=== PATIENT | male | born 1995 | race Hispanic/Latino ===

== ENCOUNTER 2024-11-08 06:41 | Emergency (ER) | payer OTHER ==
--- OUTSIDE RECORDS SUMMARY | 2024-11-08 06:44 | XMS REPORT | Continuity of Care Document ---
Author Name Unknown Address [address] [place] [address] [facility] [place] [facility] [address] [place] [address] Care Team Providers [employer] Name Role Phone Mahnaz HILL, [facility] Primary Care Physician [phone] MATT CRAVEN Attending Clinician Unavailable ELMO RODRIGUEZ Attending Clinician Unavailable Isadora Myrick MD Attending Clinician +[phone] MD ALIE Attending Clinician Unavailab JESSICA Be Attending Clinician Unavail able LAB47 Attending Clinician Unavailable Jessica Block PA-C Attending Clinician + [phone] Milton Munson MD Attending Clinician + MILTON MUNSON Attending Clinician Unav ailable Wm Reza DO Attending Clinician [phone] MILAGRO CURREI Attending Clini zay Unavailable Payers Payer Name Policy Type Policy Number Effective Date Expirati on Date Source [facility] 9 [id number] 2013 00:00:00 Problems Condition Name Condition Details Condition Category Status Onset Date Resolution Date Last Treatment Date Treating Clinician Comments Source ADHD ADHD Disease Active 08-29 00:00: 00 Milagro Ramos Overweight (278.02) Overweight (278.02) Disease Active 02-08 00:00: 00 Overview: Formattin g of this note might be different from the original. ICD-10 Milagro Ramos No known active problems No known active problems Disease Milagro Ramos Social History Social Habit Start Date Stop Date Quantity Comments Source Alcohol intake 2021-08-29 00:00:00 2021-08-29 00:00:00 Current drinker of alcohol (finding) Milagro Ramos Exposure to SARS-CoV-2 (event) 2021-08-18 00:00:00 2021-08-28 12:08:00 Not sure Milagro Ramos Tobacco use and exposure 2021-05-05 00:00:00 2021-05-05 00:00:00 Smokeless tobacco non-user Milagro Ramos Tobacco Comment 2009-03-01 00:00:00 2009-03-01 00:00:00 Per mom no one in the home smokes Milagro Ramos Sex Ass[birth year] At 1995 00:00:00 1995 00[birth year]:00 Milagro Ramos Smoking Status Start Date Stop Date Source Never smoked tobacco Milagro Ramos Medications Ordered Medication Name Filled Medication Name Start Date Stop Date Current Medication? Ordering Clinician Indication Dosage Frequency Signature (SIG) Comments Components Source Econazole Nitrate 1 % apply externally Cream 2020-06 00:00: 00 Yes [id number] Apply to affected area daily Milagro Ramos No known medications 2020-06 14:07: 22 No No known medication neeta Ramos Benzonatate (Tessalon Perles) 100 MG oral Capsule 01-10 00:00: 00 03-31 00:00 :00 No 100mg [id number] 3D Take 1 capsule (100 mg total) by mouth 3 times daily as needed Milagro Ramos Vital Signs Vital Name Observation Time Observation Value Comments S ource Systolic blood pressure 2021-08-29 16:37:00 146 mm[Hg] Milagro Seybold Diastolic blood pressure 2021-08-29 16:37:00 76 mm[Hg] Milagro Seybo ld Heart rate 2021-08-29 16:37:00 82 /min Kelse y Seybold Body temperature 2021-08-29 16:37:00 36.11 Clarita Milagro Seybold Respiratory rate 2021-08-29 16:37:00 18 /min Milagro Seybold Body height 2021-08-29 16:37:00 172.7 cm Carrie ey Seybold Body weight 2021-08-29 16:37:00 92.987 kg Carrie ey Seybold BMI 2021-08-29 16:37:00 31.17 kg/m2 Carrie ey Seybold Oxygen saturation in Arterial blood by Pulse oximetry 2021-08-29 16:37:00 98 /min Milagro Seybo ld Systolic blood pressure 2021-05-05 20:28:00 122 mm[Hg] Milagro Seybold Diastolic blood pressure 2021-05-05 20:28:00 78 mm[Hg] Milagro Seybo ld Heart rate 2021-05-05 20:28:00 69 /min Kelse y Seybold Body temperature 2021-05-05 20:28:00 36.22 Clarita Milagro Seybold Respiratory rate 2021-05-05 20:28:00 16 /min Milagro Seybold Body height 2021-05-05 20:28:00 172.7 cm Carrie ey Seybold Body weight 2021-05-05 20:28:00 89.268 kg Carrie ey Seybold BMI 2021-05-05 20:28:00 29.92 kg/m2 Carrie ey Seybold Body height 2021-04-14 19:11:00 172.7 cm Carrie ey Seybold Body weight 2021-04-14 19:11:00 90.266 kg Carrie ey Seybold BMI 2021-04-14 19:11:00 30.26 kg/m2 Carrie ey Seybold Systolic blood pressure 2021-03-31 15:15:00 122 mm[Hg] Milagro Seybold Diastolic blood pressure 2021-03-31 15:15:00 76 mm[Hg] Milagro gonzales Heart rate 2021-03-31 15:15:00 82 /min Renita Ramos Body temperature 2021-03-31 15:15:00 36.78 Clarita Milagro Ramos Respiratory rate 2021-03-31 15:15:00 18 /min Milagro Ramos Body height 2021-03-31 15:15:00 172.7 cm Carrie Ramos Body weight 2021-03-31 15:15:00 90.266 kg Carrie Ramos BMI 2021-03-31 15:15:00 30.26 kg/m2 Carrie Ramos Oxygen saturation in Arterial blood by Pulse oximetry 2021-03-31 15:15:00 99 /min Milagro gonzales Encounters Start Date/Time End Date/Time Encounter Type Admission Type Attending [facility] [place] Care Department Encounter ID Source 2023-05-05 10:00:00 2023-05-05 10:00:00 Outpatient MATT CRAVEN [id number] [facility] 2023-05-04 11:00:00 2023-05-04 11:00:00 Outpatient ELMO RODRIGUEZ [id number] Milagro [facility] 2021-08-29 10:30:00 2021-08-29 10:45:00 Office Visit Isadora Myrick [id number] Milagro felix 2021-06-17 00:00:00 2021-06-17 00:00:00 Outpatient MD MILAGRO DURAN [id number] Milagro felix 2021-05-08 00:00:00 2021-05-08 00:00:00 Outpatient MILAGRO GUERRA [id number] Milagro felix 2021-05-06 00:00:00 2021-05-06 00:00:00 Outpatient JESSICA BLOCK [id number] Milagro [facility] 2021-05-05 15:15:00 2021-05-05 15:15:00 Outpatient LAB47 MILAGRO GUERRA [id number] Milagro barrera 2021-05-05 14:23:28 2021-05-05 14:53:28 Office Visit Jessica Block [id number] [facility] 2021-04-14 14:05:56 2021-04-14 14:15:56 Office Visit Milton Munson [facility] [id number] Milagro barrera 2021-04-14 14:00:00 2021-04-14 14:00:00 Outpatient MILAGRO GUERRA [id number] Milagro barrera 2021-04-14 00:00:00 2021-04-14 00:00:00 Outpatient MILTON MUNSON MILAGRO GUERRA [id number] Milagro [facility] 2021-03-31 10:09:23 2021-03-31 10:39:23 Office Visit Wm Reza [id number] Milagro barrera 2021-01-10 15:45:00 2021-01-10 15:45:00 Outpatient MILAGRO ALBRIGHT [id number] [facility]
--- NOTE | 2024-11-08 07:57 | RAD REPORT ---
Procedure: Chest Single View HISTORY: Chest pain COMPARISON: none FINDINGS: The lungs appear clear of acute infiltrate. No significant pleural effusion noted. The heart is normal size. IMPRESSION: No acute abnormality is displayed.
--- NOTE | 2024-11-08 08:26 | ER ---
Nurse's Notes [facility] Name: Victoriano Blanton Age: 29 yrs Sex: Male : 1995 Arrival Date: 11/08/2024 Time: 06:41 Bed 18 Private MD: Diagnosis: Chest pain Presentation: 11/08 07:00 Chief complaint: Patient states: SOB x2 days with left sided chest pain 4/10 that kc6 started yesterday and worsened over night. 07:00 Coronavirus screen: At this time, the client does not indicate any symptoms associated kc6 with coronavirus-19. Ebola Screen: No symptoms or risks identified at this time. Initial Sepsis Screen: Does the patient meet any 2 criteria? HR > 90 bpm. Does the patient have a suspected source of infection? No. Patient's initial sepsis screen is negative. Risk Assessment: Do you want to hurt yourself or someone else? Patient reports no desire to harm self or others. Onset of symptoms was November 08, 2024. 07:00 Method Of Arrival: Ambulatory kc6 07:00 Acuity: LIANNE 3 kc6 Historical: - Allergies: 07:00 No Known Allergies; kc6 - Home Meds: 07:00 None [Active]; kc6 - PMHx: 07:00 None; kc6 - PSHx: 07:00 None; kc6 - Immunization history:: Adult Immunizations up to date. - Infectious Disease History:: Denies. - Social history:: Smoking status: Patient denies any tobacco usage or history of. Screenin:13 [facility] ED Fall Risk Assessment (Adult) History of falling in the last 3 months, kc6 including since admission No falls in past 3 months (0 pts) Confusion or Disorientation No (0 pts) Intoxicated or Sedated No (0 pts) Impaired Gait No (0 pts) Mobility Assist Device Used No (0 pt) Altered Elimination No (0 pt) Score/Fall Risk Level 0 - 2 = Low Risk Oriented to surroundings. Abuse screen: Denies threats or abuse. Denies injuries from another. Nutritional screening: No deficits noted. Tuberculosis screening: No symptoms or risk factors identified. Assessment: 07:14 General: Appears in no apparent distress. comfortable, well groomed, well developed, kc6 Behavior is calm, cooperative, appropriate for age. Pain: Complains of pain in chest Pain radiates to left arm Pain began 1 day ago. Neuro: Level of Consciousness is awake, alert, obeys commands, Oriented to person, place, time, situation, Appropriate for age. Cardiovascular: Reports chest pain, shortness of breath, Heart tones S1 S2 present Capillary refill < 3 seconds Rhythm is regular. Respiratory: Airway is patent Trachea midline Respiratory effort is even, unlabored, Respiratory pattern is regular, symmetrical. GI: No signs and/or symptoms were reported involving the gastrointestinal system. : No signs and/or symptoms were reported regarding the genitourinary system. EENT: No signs and/or symptoms were reported regarding the EENT system. Derm: No signs and/or symptoms reported regarding the dermatologic system. Skin is intact, is healthy with good turgor, Skin is pink, warm \T\ dry. Musculoskeletal: No signs and/or symptoms reported regarding the musculoskeletal system. Circulation, motion, and sensation intact. Range of motion: intact in all extremities. Vital Signs: 06:59 BP 137 / 87; Pulse 94; Resp 16; Temp 98.5; Pulse Ox 98% on R/A; Weight 99.79 kg; Height rg5 5 ft. 8 in. ; Pain 4/10; 07:59 BP 94 / 75; Pulse 86; Resp 18 S; Pulse Ox 98% on R/A; kc6 06:59 Body Mass Index 33.45 (99.79 kg, 172.72 cm) rg5 06:59 Pain Scale: Adult rg5 ED Course: 06:46 Patient arrived in ED. jj6 07:00 Arm band placed on. EKG completed in triage. Results shown to MD. kc6 07:00 EKG done, by ED staff, reviewed by Rosaline Myrick MD. Patient maintains SpO2 saturation kc6 greater than 95% on room air. 07:08 Jillian Guerra, JENNIFER is Primary Nurse. kc6 07:10 Rosaline Myrick MD is Attending Physician. sp3 07:13 Triage completed. kc6 07:13 Patient has correct armband on for positive identification. Placed in gown. Bed in low kc6 position. Call light in reach. Side rails up X 1. strategic planner on. Pulse ox on. NIBP on. Door closed. Noise minimized. Lights dimmed. Warm blanket given. Pillow given. Verbal reassurance given. 07:41 XRAY Chest (1 view) In Process Unspecified. EDMS 08:42 No provider procedures requiring assistance completed. IV discontinued, intact, kc6 bleeding controlled, No redness/swelling at site. Pressure dressing applied. Administered Medications: No medications were administered Medication: 08:43 VIS not applicable for this client. kc6 Outcome: 08:26 Discharge ordered by . sp3 08:42 Discharged to home ambulatory, kc6 08:42 Condition: good 08:42 Discharge instructions given to patient, Instructed on discharge instructions, follow up and referral plans. Demonstrated understanding of instructions, follow-up care, 08:43 Patient left the ED. kc6 Signatures: Dispatcher [employer] EDMS Rosaline Myrick MD MD sp3 Jaylin Cervantes6 Jillian Guerra, RN RN kc6 Chad Mitchell RN RN rg5
--- NOTE | 2024-11-08 08:26 | EDPHYS ---
Physician Documentation [facility] Name: Victoriano Blanton Age: 29 yrs Sex: Male : 1995 Arrival Date: 11/08/2024 Time: 06:41 Bed 18 Private MD: ED Physician Rosaline Myrick HPI: 11/08 07:39 This 29 yrs old Male presents to ER via Ambulatory with complaints of sp3 Shortness Of Breath, Chest Pain. 07:39 29-year-old male with no past medical history presents with 48-hour history of sp3 left-sided chest pain underneath his pectoralis muscle. Patient said it started insidiously while at rest. He reports no exertional activity, injury, trauma, nausea or vomiting, abdominal pain, back pain, kidney stone history, dysuria, visualized hematuria, prolonged immobilization, travel history, prior DVT or PE, family history of hypercoagulability, or any other signs or symptoms on ROS at this time. Pain is described as sharp in nature and comes and goes.. Historical: - Allergies: 07:00 No Known Allergies; kc6 - Home Meds: 07:00 None [Active]; kc6 - PMHx: 07:00 None; kc6 - PSHx: 07:00 None; kc6 - Immunization history:: Adult Immunizations up to date. - Infectious Disease History:: Denies. - Social history:: Smoking status: Patient denies any tobacco usage or history of. ROS: 07:40 Constitutional: Negative for fever, chills, and weight loss, Eyes: Negative for injury, sp3 pain, redness, and discharge, ENT: Negative for injury, pain, and discharge, Neck: Negative for injury, pain, and swelling, Respiratory: Negative for shortness of breath, cough, wheezing, and pleuritic chest pain, Abdomen/GI: Negative for abdominal pain, nausea, vomiting, diarrhea, and constipation, Back: Negative for injury and pain, Skin: Negative for injury, rash, and discoloration, Neuro: Negative for headache, weakness, numbness, tingling, and seizure, Psych: Negative for depression, anxiety, suicide ideation, homicidal ideation, and hallucinations, Allergy/Immunology: Negative for hives, rash, and allergies, Endocrine: Negative for neck swelling, polydipsia, polyuria, polyphagia, and marked weight changes, Hematologic/Lymphatic: Negative for swollen nodes, abnormal bleeding, and unusual bruising, 07:40 All other systems are negative, Exam: 07:40 Constitutional: This is a well developed, well nourished patient who is awake, alert, sp3 and in no acute distress. Head/Face: Normocephalic, atraumatic. Eyes: Pupils equal round and reactive to light, extra-ocular motions intact. Lids and lashes normal. Conjunctiva and sclera are non-icteric and not injected. Cornea within normal limits. Periorbital areas with no swelling, redness, or edema. ENT: Nares patent. No nasal discharge, no septal abnormalities noted. External auditory canals are clear. Oropharynx with no redness, swelling, or masses, exudates, or evidence of obstruction, uvula midline. Mucous membranes moist. Neck: Trachea midline, no thyromegaly or masses palpated, and no cervical lymphadenopathy. Supple, full range of motion without nuchal rigidity, or vertebral point tenderness. No Meningismus. Chest/axilla: Normal chest wall appearance and motion. Nontender with no deformity. No lesions are appreciated. Cardiovascular: Regular rate and rhythm with a normal S1 and S2. No gallops, murmurs, or rubs. Normal PMI, no JVD. No pulse deficits. Respiratory: Lungs have equal breath sounds bilaterally, clear to auscultation and percussion. No rales, rhonchi or wheezes noted. No increased work of breathing, no retractions or nasal flaring. Abdomen/GI: Soft, non-tender, with normal bowel sounds. No distension or tympany. No guarding or rebound. No evidence of tenderness throughout. Back: No spinal tenderness. No costovertebral tenderness. Full range of motion. Skin: Warm, dry with normal turgor. Normal color with no rashes, no lesions, and no evidence of cellulitis. MS/ Extremity: Pulses equal, no cyanosis. Neurovascular intact. Full, normal range of motion. Neuro: Awake and alert, GCS 15, oriented to person, place, time, and situation. Cranial nerves II-XII grossly intact. Motor strength 5/5 in all extremities. Sensory grossly intact. Cerebellar exam normal. Normal gait. Psych: Awake, alert, with orientation to person, place and time. Behavior, mood, and affect are within normal limits. 07:40 ECG was reviewed by the Attending Physician. EKG demonstrates normal sinus rhythm at 91 bpm with normal intervals, normal QRS, normal axis, normal ST/T-segment's without evidence of acute ischemia. Vital Signs: 06:59 BP 137 / 87; Pulse 94; Resp 16; Temp 98.5; Pulse Ox 98% on R/A; Weight 99.79 kg; Height rg5 5 ft. 8 in. ; Pain 4/10; 07:59 BP 94 / 75; Pulse 86; Resp 18 S; Pulse Ox 98% on R/A; kc6 06:59 Body Mass Index 33.45 (99.79 kg, 172.72 cm) rg5 06:59 Pain Scale: Adult rg5 MDM: 07:11 Medical Screening Exam initiated sp3 07:49 Data reviewed: vital signs, nurses notes, lab test result(s), EKG, radiologic studies. sp3 ED course: 29-year-old male with no past medical history now with chest pain. Differential diagnosis is likely musculoskeletal however we will assess for ACS and PE with D-dimer and troponin. If that and chest x-ray are negative we will safely discharge patient home.. 08:26 ED course: All workup negative. Will safely discharge patient home at this time.. sp3 11/08 07:25 Order name: Troponin High Sensitivity; Complete Time: 08:25 sp3 11/08 07:25 Order name: D-Dimer; Complete Time: 08:25 sp3 11/08 07:11 Order name: XRAY Chest (1 view); Complete Time: 08:00 sp3 11/08 07:11 Order name: EKG; Complete Time: 07:11 sp3 11/08 07:11 Order name: Cardiac monitoring; Complete Time: 07:11 sp3 11/08 07:11 Order name: EKG - Nurse/Tech; Complete Time: 07:11 sp3 Administered Medications: No medications were administered Disposition Summary: 11/08/24 08:26 Discharge Ordered Notes: Location: Home sp3 Condition: Stable sp3 Diagnosis - Chest pain sp3 Followup: sp3 - With: Private Physician - When: Upon discharge from the Emergency Department - Reason: Continuance of care Discharge Instructions: - Discharge Summary Sheet sp3 - Nonspecific Chest Pain, Adult sp3 Forms: - Medication Reconciliation Form sp3 - Antibiotic Education sp3 - Prescription Opioid Use sp3 - Patient Portal Instructions sp3 - Leadership Thank You Letter sp3 - Work release form kc6 Signatures: Dispatcher [employer] EDMS Rosaline Myrick MD MD sp3 Jillian Guerra RN RN kc6 Corrections: (The following items were deleted from the chart) 07:25 07:25 Troponin High Sensitivity+C.LAB.BRZ ordered. EDMS EDMS 07:25 07:25 D-DIMER+COAG.LAB.BRZ ordered. EDMS EDMS
[2024-11-08 08:54] VITALS: TEMP 98.5; O2SAT 98
[2024-11-08 08:55] VITALS: BP 94/75
== END 2024-11-08 08:43 | disposition home or self-care (01) ==
LOC: ER 06:41
DX: R07.9 Chest pain, unspecified (principal)
CPT/HCPCS: 36415; 71045; 84484; 85379; 93005